=== PATIENT | male | born 1960 | race Caucasian/White ===

== ENCOUNTER 2018-02-21 09:51 | Outpatient (CLI) | payer OTHER ==
[2018-02-21] MEDS ORDERED: Iopamidol 370 76% 100 ML VIAL ONE (15:02)
== END 2018-02-21 09:52 | disposition home or self-care (01) ==
LOC: BICCT 09:51
PROVIDERS: ATTEND Urology
DX: R31.0 Gross hematuria (principal); N28.1 Cyst of kidney, acquired; K76.0 Fatty (change of) liver, not elsewhere classified; K57.90 Diverticulosis of intestine, part unspecified, without perforation or abscess without bleeding
CPT/HCPCS: 74178

== ENCOUNTER 2021-04-19 15:44 | Outpatient (CLI) | payer BC | END 2021-04-19 15:45 | disposition home or self-care (01) | LOC: SCSRAD 15:44 | PROVIDERS: ATTEND Family Medicine | DX: M25.511 Pain in right shoulder (principal); M79.631 Pain in right forearm ==

== ENCOUNTER 2021-07-01 12:57 | Outpatient (CLI) | payer BC | END 2021-07-01 12:58 | disposition home or self-care (01) | LOC: SCSMRI 12:57 | PROVIDERS: ATTEND Orthopaedic Surgery | DX: M75.101 Unspecified rotator cuff tear or rupture of right shoulder, not specified as traumatic (principal); M19.011 Primary osteoarthritis, right shoulder ==

== ENCOUNTER 2022-08-26 15:50 | Emergency (ER) | payer BC ==
[2022-08-26] MEDS ORDERED: Boostrix 0.5 ML (Tdap) VIAL (>/=7 yrs of age) ONE (17:26)
== END 2022-08-26 18:47 | disposition home or self-care (01) ==
LOC: ERS 15:50
DX: S06.0X0A Concussion without loss of consciousness, initial encounter (principal); S00.01XA Abrasion of scalp, initial encounter; S00.81XA Abrasion of other part of head, initial encounter; Z23 Encounter for immunization; I10 Essential (primary) hypertension; E78.5 Hyperlipidemia, unspecified; E11.9 Type 2 diabetes mellitus without complications; Z79.899 Other long term (current) drug therapy; Z79.84 Long term (current) use of oral hypoglycemic drugs; W22.8XXA Striking against or struck by other objects, initial encounter
CPT/HCPCS: 70450; 90471; 90715; 93005

== ENCOUNTER 2024-02-12 14:37 | Inpatient (IN) | payer BC ==
[~2024-02-12 14:37] MED LIST: Iopamidol-370 76% 500 ML MDV (1 ML CHARGE) ONE
[2024-02-12 15:38] LABS: #Basophils Less than 0.03 10x3/uL (0.0-0.2); %Basophils 0.4 % (0.0-1.0); %Eosinophils 3.1 % (0.0-10.0); %Lymphocytes 21.1 % (21.0-51.0); %Monocytes 7.8 % (0.0-10.0); %Neutrophils 67.2 % (42.0-75.0); Hematocrit 36.8 % (42.0-52.0); Hemoglobin 12.7 g/dL (14.0-18.0); Mean Corpuscular HGB CONC 34.5 g/dL (32.0-36.0); Mean Corpuscular Hemoglobin 31.2 pg (27.0-31.0); Mean Corpuscular Volume 90.4 fL (78.0-98.0); Mean Platelet Volume 10.7 fL (7.4-10.4); Platelet Count 155 10x3/uL (130-400); RBC Distribution Width 12.2 % (11.5-14.5); Red Blood Cell (RBC) Count 4.07 mill/uL (4.70-6.10)
[2024-02-12 15:57] LABS: ALT (SGPT) 15 U/L (8-55); AST (SGOT) 12 U/L (5-34); Albumin 3.8 g/dL (3.4-4.8); Alkaline Phosphatase 79 U/L (40-110); Anion Gap 10 mmol/L (10-20); BUN (Urea Nitrogen) 11 mg/dL (8.4-25.7); Bilirubin, Total 1.2 mg/dL (0.2-1.2); Calc. Creatinine Clearance 0 mL/min (70-130); Calcium 9.1 mg/dL (7.8-10.44); Carbon Dioxide 24 mmol/L (23-31); Chloride 104 mmol/L (98-107); Estimated GFR 85; Globulin 2.4 g/dL (2.4-3.5); Glucose 338 mg/dL (80-115); Potassium 3.9 mmol/L (3.5-5.1); Protein, Total 6.2 g/dL (5.8-8.1); Sodium 134 mmol/L (136-145)
[2024-02-12 16:05] LABS: Troponin I Less than 0.010 ng/mL (< 0.028)
[2024-02-12] MEDS ORDERED: Dextrose 5% in Water 1,000 ML IV PRN (17:52)
[2024-02-12] MEDS ORDERED: Dextrose 50% Abboject 50 ML SYRINGE SLOW IVP PRN (17:52)
[2024-02-12] MEDS ORDERED: hydrALAZINE 20 MG/ML VIAL SLOW IVP PRN (17:52)
[2024-02-12] MEDS ORDERED: Glucagon 1 MG/ML KIT IM PRN (17:52)
[2024-02-12] MEDS ORDERED: Insulin Lispro 100 UNIT/ML 10 ML VIAL SC PRN (18:15)
[2024-02-12] MEDS ORDERED: Insulin Regular, Human 100 UNIT/ML 10 ML VIAL ONE (18:28)
[2024-02-12 18:37] LABS: Bacteria/HPF None Seen HPF (None Seen); Bilirubin Negative (Negative); Blood, Urine Negative (Negative); CAUTI Indications for Culture Alt mental st,lethar; Clarity Clear (Clear); Glucose, Urine (Dipstick) Greater than 1000 mg/dL (Negative); Ketone, Urine Negative (Negative); Leukocyte Negative Leu/uL (Negative); Nitrite Negative (Negative); Protein, Urine (Dipstick) Negative (Neg-Trace); RBC/HPF None Seen HPF (0-3); Specific Gravity, Urine 1.048 (1.002-1.036); Squamous Epithelial None Seen HPF (0-3); Urobilinogen Normal mg/dL (Less than 2); WBC/HPF 0-3 HPF (0-3); pH, Urine 5.5 (5.0-9.0)
[2024-02-12 18:38] LABS: Urine Culture Reflex No No
[2024-02-12 18:40] LABS: Hemoglobin A1c 7.2 % (4.0-6.0)
[2024-02-12 21:55] VITALS: BMI 38.7
[2024-02-13 05:08] LABS: #Basophils 0.03 10x3/uL (0.0-0.2); %Basophils 0.6 % (0.0-1.0); %Lymphocytes 26.2 % (21.0-51.0); %Monocytes 8.9 % (0.0-10.0); %Neutrophils 60.7 % (42.0-75.0); Hemoglobin 12.2 g/dL (14.0-18.0); Mean Corpuscular HGB CONC 34.9 g/dL (32.0-36.0); Mean Corpuscular Volume 88.8 fL (78.0-98.0); Mean Platelet Volume 10.6 fL (7.4-10.4); Platelet Count 148 10x3/uL (130-400); RBC Distribution Width 12.3 % (11.5-14.5); Red Blood Cell (RBC) Count 3.94 mill/uL (4.70-6.10)
[2024-02-13 05:27] LABS: Anion Gap 14 mmol/L (10-20); BUN (Urea Nitrogen) 10 mg/dL (8.4-25.7); Calc. Creatinine Clearance 163 mL/min (70-130); Calcium 9.1 mg/dL (7.8-10.44); Carbon Dioxide 26 mmol/L (23-31); Cardiac Risk 3.6 (Less than 4.5); Chloride 106 mmol/L (98-107); Cholesterol 163 mg/dl (< 200 Desired); Estimated GFR 99; Glucose 142 mg/dL (80-115); HDL Cholesterol 45 mg/dL (>60 Neg Risk); LDL Cholesterol, Calculated 63 mg/dL; Potassium 4.1 mmol/L (3.5-5.1); Sodium 142 mmol/L (136-145); Triglycerides 277 mg/dL (Less than 150)
[2024-02-13] MEDS: Folic Acid 1 MG TAB PO SCH ×2 (07:04→08:09)
[2024-02-13] MEDS: Thiamine 100 MG TAB PO SCH ×2 (07:04→08:09)
[2024-02-13] MEDS: Multivit, Therapeutic 1 TAB PO SCH ×2 (07:04→08:09)
[2024-02-13] MEDS: Atorvastatin Calcium 40 MG TAB PO SCH (07:04)
[2024-02-13] MEDS: Heparin 5,000 UNITS/ML VIAL SC SCH (07:05)
[2024-02-13] MEDS: Aspirin 81 mg Enteric Coated Tablet PO SCH (08:09)
[2024-02-13] MEDS: Insulin Lispro 100 UNIT/ML 10 ML VIAL SC PRN (13:10)
[2024-02-14 04:52] LABS: #Basophils Less than 0.03 10x3/uL (0.0-0.2); %Basophils 0.2 % (0.0-1.0); %Eosinophils 3.5 % (0.0-10.0); %Lymphocytes 30.2 % (21.0-51.0); %Monocytes 8.3 % (0.0-10.0); %Neutrophils 57.6 % (42.0-75.0); Hematocrit 37.3 % (42.0-52.0); Mean Corpuscular HGB CONC 34.9 g/dL (32.0-36.0); Mean Corpuscular Hemoglobin 30.8 pg (27.0-31.0); Mean Corpuscular Volume 88.4 fL (78.0-98.0); Mean Platelet Volume 10.5 fL (7.4-10.4); Platelet Count 150 10x3/uL (130-400); RBC Distribution Width 12.3 % (11.5-14.5); Red Blood Cell (RBC) Count 4.22 mill/uL (4.70-6.10)
[2024-02-14 05:15] LABS: Magnesium 2.2 mg/dL (1.6-2.6)
[2024-02-14] MEDS: Sertraline 100 MG TAB PO SCH (08:21)
[2024-02-14] MEDS: Pioglitazone HCl 15 MG TAB PO SCH (08:21)
[2024-02-14] MEDS: Rosuvastatin 20 MG TAB PO SCH (08:21)
[2024-02-14] MEDS: Tamsulosin HCl 0.4 MG CAP PO SCH (08:22)
[2024-02-14] MEDS: Lisinopril 5 MG TAB PO SCH (08:22)
[2024-02-14] MEDS: metFORMIN 500 MG TAB PO SCH (08:22)
[2024-02-14 15:42] VITALS: BP 120/79; TEMP 98.5
== END 2024-02-14 20:00 | disposition home or self-care (01) | DRG 641 ==
LOC: ERS 14:37 → 2SE 18:05 → OBSVTOIN 02-13 19:44
PROVIDERS: ADMIT Internal Medicine; ATTEND Family Medicine
DX: E86.0 Dehydration (principal); E11.65 Type 2 diabetes mellitus with hyperglycemia; F10.90 Alcohol use, unspecified, uncomplicated; E66.01 Morbid (severe) obesity due to excess calories; I10 Essential (primary) hypertension; E78.5 Hyperlipidemia, unspecified; N40.0 Benign prostatic hyperplasia without lower urinary tract symptoms; F32.A Depression, unspecified; E66.9 Obesity, unspecified; Z96.653 Presence of artificial knee joint, bilateral; Z98.890 Other specified postprocedural states; Z71.41 Alcohol abuse counseling and surveillance of alcoholic; Z68.38 Body mass index [BMI] 38.0-38.9, adult
CPT/HCPCS: 36415; 36416; 70450; 70496; 70498; 70551; 80048; 80053; 80061; 81001; 83036; 83735; 84443; 84484; 85025; 93005; 93306; 96372; G0378; J1644; J1815; Q9967